=== PATIENT | female | born 2000 | race Caucasian/White ===

== ENCOUNTER 2018-11-11 01:23 | Emergency (ER) | payer OTHER ==
--- OUTSIDE RECORDS SUMMARY | 2018-11-11 01:24 | XMS REPORT ---
:2000 Author Organization eClinicalWorks Care Team Providers Name Role Phone Andrea Garland Provider Role Unavailable Allergies, Adverse Reactions, Alerts Substance Reaction Event Type N.K.D.A. Info Not Available Non Drug Allergy Problems Problem Type Condition Code Onset Dates Condition Status Problem Irregular heart rate I49.9 Active Problem Depression with anxiety F41.8 Active Assessment Encounter to determine O36.80X0 Active viability of , single or unspecified fetus Assessment Amenorrhea N91.2 Active Assessment Encounter for supervision of Z34.91 Active low-risk in first trimester Medications No Known Medications Results No Known Results Summary Purpose [email or web address] Submission
--- OUTSIDE RECORDS SUMMARY | 2018-11-11 01:24 | XMS REPORT ---
:2000 Author Organization eClinicalWorks Care Team Providers Name Role Phone Raiza Ambriz Provider Role Unavailable Allergies No Known Allergies Problems Problem Type Condition Code Onset Dates Condition Status Problem Irregular heart rate I49.9 Active Problem Supervision of other high risk O09.899 Active pregnancies, unspecified trimester Problem Depression with anxiety F41.8 Active Problem Unspecified blood type, Rh negative Z67.91 Active Problem Other specified related O26.899 Active conditions, unspecified trimester Problem Underimmunization status Z28.3 Active Medications No Known Medications Results No Known Results Summary Purpose eClinicalWorks Submission
--- OUTSIDE RECORDS SUMMARY | 2018-11-11 01:24 | XMS REPORT ---
:2000 Author Organization eClinicalWorks Care Team Providers Name Role Phone Nga Ambrizy Provider Role Unavailable Allergies, Adverse Reactions, Alerts Substance Reaction Event Type N.K.D.A. Info Not Available Non Drug Allergy Problems Problem Type Condition Code Onset Dates Condition Status Problem Irregular heart rate I49.9 Active Problem Depression with anxiety F41.8 Active Assessment Irregular heart rate I49.9 Active Assessment Depression with anxiety F41.8 Active Medications No Known Medications Results Name Result Date Reference Range Unit Abnormality Flag EKG Complete Summary Purpose eClinicalWorks Submission
--- OUTSIDE RECORDS SUMMARY | 2018-11-11 01:25 | XMS REPORT ---
:2000 Author Organization eClinicalWorks Care Team Providers Name Role Phone Andrea Garland Provider Role Unavailable Allergies No Known Allergies Problems Problem Type Condition Code Onset Dates Condition Status Assessment Supervision of high risk O09.92 Active in second trimester Problem Depression with anxiety F41.8 Active Problem Irregular heart rate I49.9 Active Problem Supervision of high risk O09.92 Active in second trimester Problem Underimmunization status Z28.3 Active Problem Unspecified blood type, Rh negative Z67.91 Active Problem Supervision of other high risk O09.899 Active pregnancies, unspecified trimester Problem Other specified related O26.899 Active conditions, unspecified trimester Medications No Known Medications Results No Known Results Summary Purpose eClinicalWorks Submission
--- OUTSIDE RECORDS SUMMARY | 2018-11-11 01:25 | XMS REPORT ---
:2000 Author Organization eClinicalWorks Care Team Providers Name Role Phone Andrea Garland Provider Role Unavailable Allergies No Known Allergies Problems Problem Type Condition Code Onset Dates Condition Status Assessment Encounter for supervision of Z34.91 Active low-risk in first trimester Problem Irregular heart rate I49.9 Active Problem [...]
--- NOTE | 2018-11-11 02:08 | EDPHYS ---
Physician Documentation [facility] Name: Gretel Jones Age: 18 yrs Sex: Female : 2000 Arrival Date: 11/11/2018 Time: 01:25 Bed 7 Private MD: ED Physician Mehul Fraga HPI: 11/11 02:10 This 18 yrs old Female presents to ER via Ambulatory with complaints of cp Hemorrhoids - - 5mths Preg. 02:10 The patient presents to the emergency department with pain in the rectal area, cp hemorrhoids. 02:10 Onset: The symptoms/episode began/occurred 2 day(s) ago. cp 02:10 Associate signs and symptoms: Pertinent positives: constipation, Pertinent negatives: cp abdominal pain, fever, lower GI bleeding, vomiting vaginal bleeding, leakage of fluids. 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 - Social history:: Smoking status: Patient/guardian denies using tobacco, never smoked. - Ebola Screening: : Patient negative for fever greater than or equal to 101.5 degrees Fahrenheit, and additional compatible Ebola Virus Disease symptoms Patient denies exposure to infectious person Patient denies travel to an Ebola-affected area in the 21 days before illness onset. ROS: 02:15 Constitutional: Negative for body aches, chills, fever, poor PO intake. cp 02:15 Eyes: Negative for injury, pain, redness, and discharge. cp 02:15 Cardiovascular: Negative for chest pain, edema, palpitations. 02:15 Respiratory: Negative for cough, shortness of breath, wheezing. 02:15 Abdomen/GI: Positive for constipation, rectal pain, Negative for abdominal pain, nausea, vomiting, and diarrhea, rectal bleeding. 02:15 : Negative for urinary symptoms, vaginal bleeding, vaginal discharge. 02:15 Skin: Negative for rash. 02:15 All other systems are negative. Exam: 02:18 Constitutional: The patient appears in no acute distress, alert, awake, well developed, cp well nourished. 02:18 Head/Face: Normocephalic, atraumatic. cp 02:18 Eyes: Periorbital structures: appear normal, Sclera: no appreciated abnormality, Lids and lashes: appear normal, bilaterally. 02:18 ENT: External ear(s): are unremarkable, Nose: is normal, Mouth: is normal, Posterior pharynx: is normal, airway is patent, no erythema, no exudate. 02:18 Chest/axilla: Inspection: normal. 02:18 Cardiovascular: Rate: normal. 02:18 Respiratory: the patient does not display signs of respiratory distress, Respirations: normal. 02:18 Abdomen/GI: Inspection: gravid appearance, is noted, Palpation: abdomen is soft and non-tender, in all quadrants, Rectal exam: hemorrhoid(s), external, with pain, without bleeding. Vital Signs: 01:41 BP 129 / 82; Pulse 86; Resp 18; Temp 98.1(O); Pulse Ox 100% ; Weight 63.96 kg; Height 5 tl1 ft. 2 in. (157.48 cm); Pain 0/10; 02:20 BP 123 / 79; Pulse 91; Resp 17; Pulse Ox 100% on R/A; Pain 0/10; tl1 01:41 Body Mass Index 25.79 (63.96 kg, 157.48 cm) tl1 MDM: 01:46 Patient medically screened. cp 02:06 Data reviewed: vital signs, nurses notes, and as a result, I will discharge patient. cp 02:06 Counseling: I had a detailed discussion with the patient and/or guardian regarding: the cp historical points, exam findings, and any diagnostic results supporting the discharge/admit diagnosis, the need for outpatient follow up, an OB/Gyne specialist, to return to the emergency department if symptoms worsen or persist or if there are any questions or concerns that arise at home. 11/11 02:05 Order name: FHT's; Complete Time: 02:09 cp Administered Medications: No medications were administered Disposition: 11/11/18 02:07 Discharged to Home. Impression: Hemorrhoids in . - Condition is Stable. - Discharge Instructions: Hemorrhoids. - Prescriptions for Anusol- HC 2.5 % Rectal Cream - Apply to affected area 1 application by TOPICAL route every 8 hours As needed; 30 gram. - Medication Reconciliation Form, Thank You Letter, Antibiotic Education, Prescription Opioid Use form. - Follow up: Private Physician; When: 2 - 3 days; Reason: Worsening of condition. - Problem is new. - Symptoms are unchanged. Signatures: Rosaline Orellana RN RN tl1 Asif Mcginnis PA PA cp Corrections: (The following items were deleted from the chart) 02:20 02:07 11/11/2018 02:07 Discharged to Home. Impression: Hemorrhoids in . tl1 Condition is Stable. Forms are Medication Reconciliation Form, Thank You Letter, Antibiotic Education, Prescription Opioid Use. Follow up: Private Physician; When: 2 - 3 days; Reason: Worsening of condition. Problem is new. Symptoms are unchanged. cp 11/12 02:11 11/11 00:10 This 18 yrs old Female presents to ER via Ambulatory with cp complaints of Hemorrhoids - - 5mths Preg. cp
--- NOTE | 2018-11-11 02:08 | ER ---
Nurse's Notes [facility] Name: Gretel Jones Age: 18 yrs Sex: Female : 2000 Arrival Date: 11/11/2018 Time: :25 Bed 7 Private MD: Diagnosis: Hemorrhoids in Presentation: 11/11 01:37 Presenting complaint: Patient states: I am 22 weeks and approx 2 days ago tl1 noticed hemorrhoids that are protruding. It is uncomfortable when I walk. Transition of care: patient was not received from another setting of care. Onset of symptoms was November 08, 2018. Risk Assessment: Do you want to hurt yourself or someone else? Patient reports no desire to harm self or others. Initial Sepsis Screen: Does the patient meet any 2 criteria? No. Patient's initial sepsis screen is negative. Does the patient have a suspected source of infection? No. Patient's initial sepsis screen is negative. Care prior to arrival: None. 01:37 Method Of Arrival: Ambulatory tl1 01:37 Acuity: BIJU 3 tl1 Triage Assessment: 02:19 General: Behavior is calm, cooperative, appropriate for age. 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 - Social history:: Smoking status: Patient/guardian denies using tobacco, never smoked. - Ebola Screening: : Patient negative for fever greater than or equal to 101.5 degrees Fahrenheit, and additional compatible Ebola Virus Disease symptoms Patient denies exposure to infectious person Patient denies travel to an Ebola-affected area in the 21 days before illness onset. Screenin:11 Abuse screen: Denies threats or abuse. Denies injuries from another. Nutritional tl1 screening: No deficits noted. Tuberculosis screening: No symptoms or risk factors identified. Fall Risk None identified. Assessment: 01:40 General: Appears in no apparent distress. Pain: Denies pain. Neuro: Level of tl1 Consciousness is awake, alert, obeys commands. Cardiovascular: Denies chest pain. Respiratory: Airway is patent Trachea midline Respiratory effort is even, unlabored. GI: Abdomen is Rectal exam: Hemorrhoids noted. : No signs and/or symptoms were reported regarding the genitourinary system. EENT: No signs and/or symptoms were reported regarding the EENT system. Derm: No signs and/or symptoms reported regarding the dermatologic system. Vital Signs: 01:41 BP 129 / 82; Pulse 86; Resp 18; Temp 98.1(O); Pulse Ox 100% ; Weight 63.96 kg; Height 5 tl1 ft. 2 in. (157.48 cm); Pain 0/10; 02:20 BP 123 / 79; Pulse 91; Resp 17; Pulse Ox 100% on R/A; Pain 0/10; tl1 01:41 Body Mass Index 25.79 (63.96 kg, 157.48 cm) tl1 Vitals: 02:11 Heart Tones 163. tl1 ED Course: 01:25 Patient arrived in ED. am2 01:37 Rosaline Orellana RN is Primary Nurse. tl1 01:39 Triage completed. tl1 01:43 Arm band placed on right wrist. Patient placed in an exam room. tl1 01:45 Patient has correct armband on for positive identification. Placed in gown. Bed in low tl1 position. Call light in reach. Side rails up X 1. 01:46 Asif Mcginnis PA is PHCP. cp 01:46 Mehul Fraga MD is Attending Physician. 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 Patient did not have IV access during this tl1 emergency room visit. Administered Medications: No medications were administered Outcome: 02:07 Discharge ordered by . cp 02:19 Discharged to home ambulatory, with family. tl1 02:19 Condition: good 02:19 Discharge instructions given to patient, family, Instructed on discharge instructions, follow up and referral plans. medication usage, Demonstrated understanding of instructions, follow-up care, medications, Prescriptions given X 1. 02:20 Patient left the ED. tl1 Signatures: Rosaline Orellana RN RN tl1 Asif Mcginnis PA PA cp Moreno, Amanda am2
== END 2018-11-11 02:20 | disposition home or self-care (01) ==
LOC: ER 01:23
DX: O22.42 Hemorrhoids in pregnancy, second trimester (principal); Z3A.00 Weeks of gestation of pregnancy not specified
CPT/HCPCS: 99283

== ENCOUNTER 2019-01-03 08:50 | Emergency (ER) | payer OTHER ==
--- OUTSIDE RECORDS SUMMARY | 2019-01-03 08:53 | XMS REPORT ---
:2000 Author Organization eClinicalWorks Care Team Providers Name Role Phone Andrea Garland Provider Role Unavailable Allergies No Known Allergies Problems Problem Type Condition Code Onset Dates Condition Status Problem Depression with anxiety F41.8 Active Problem [...]
--- OUTSIDE RECORDS SUMMARY | 2019-01-03 08:53 | XMS REPORT ---
:2000 Author Organization eClinicalWorks Care Team Providers Name Role Phone Andrea Garland Provider Role Unavailable Allergies No Known Allergies Problems Problem Type Condition Code Onset Dates Condition Status Assessment Supervision of high risk O09.93 Active in third trimester Problem Unspecified blood type, Rh negative Z67.91 Active Problem Supervision of high risk O09.92 Active in second trimester Problem Irregular heart rate I49.9 Active Problem Supervision of high risk O09.93 Active in third trimester Problem Other specified related O26.899 Active conditions, unspecified trimester Problem Underimmunization status Z28.3 Active Problem Depression with anxiety F41.8 Active Problem Supervision of other high risk O09.899 Active pregnancies, unspecified trimester Medications Medication Code Code Instructions Start End Status Dosage System Date Date Ferralet [address] [facility] 42045136223 90-1 MG Orally December 08, Active 1 tablet Once a day 2018 after a meal CitraNatal 90 [place] 07120180304 90-1 & 300 MG December 08, Active as directed DHA Orally once a 2019 day Results No Known Results Summary Purpose eClinicalWorks Submission
--- OUTSIDE RECORDS SUMMARY | 2019-01-03 08:53 | XMS REPORT ---
[...] Medications Results No Known Results Summary Purpose [employer] Submission
--- OUTSIDE RECORDS SUMMARY | 2019-01-03 08:53 | XMS REPORT ---
[...] related O26.899 Active conditions, unspecified trimester Medications Medication Code Code Instructions Start End Status Dosage System Date Date Ferralet 90 [facility] 25057435959 90-1 MG Orally December 08, Active 1 tablet Once a day 2019 after a meal CitraNatal 90 [facility] [id number] 90-1 & 300 MG December 08, Active as directed DHA Orally once a 2019 day Results No Known Results Summary Purpose eClinicalWorks Submission
--- OUTSIDE RECORDS SUMMARY | 2019-01-03 08:53 | XMS REPORT ---
:2000 Author Organization eClinicalWorks Care Team Providers Name Role Phone Andrea Garland Provider Role Unavailable Allergies No Known Allergies Problems Problem Type Condition Code Onset Dates Condition Status Assessment Unspecified blood type, Rh negative Z67.91 Active Assessment Supervision of high risk O09.92 Active [...]
--- OUTSIDE RECORDS SUMMARY | 2019-01-03 08:53 | XMS REPORT ---
:2000 Author Organization eClinicalWorks Care Team Providers Name Role Phone Andrea Garland Provider Role Unavailable Allergies No Known Allergies Problems Problem Type Condition Code Onset Dates Condition Status Assessment Need for rhogam due to Rh negative Z29.13 Active mother Problem Depression with anxiety F41.8 Active Problem [...]
[2019-01-03 10:14] LABS: Absolute Lymphocytes (CBC) 2.3 K/uL (0.7-4.9); Basophils % 0.3 % (0-1.3); Eosinophils % 0.6 % (0-4.4); Hematocrit 33.7 % (36.0-45.0); Lymphocytes % 14.3 % (15.3-44.8); MPV 10.1 fL (7.6-11.3); Monocytes % 6.4 % (3.3-12.3); RBC Red Blood Cell Count 3.75 M/uL (3.86-4.86)
[2019-01-03 10:41] LABS: BUN Blood Urea Nitrogen 9 mg/dL (7-18); Bicarbonate 23 mmol/L (21-32); Glucose Level 84 mg/dL (74-106); Potassium 3.8 mmol/L (3.5-5.1); Sodium Level 139 mmol/L (136-145); Troponin (Emerg Dept Use Only) < 0.02 ng/mL (0.0-0.045)
--- NOTE | 2019-01-03 11:00 | RAD REPORT ---
EXAM DESCRIPTION: RAD - Chest Single View - 01/03/2019 10:52 am CLINICAL HISTORY: shield;Chest pain Chest pain. COMPARISON: No comparisons FINDINGS: Portable technique limits examination quality. The lungs are grossly clear. The heart is normal in size. No displaced fractures. IMPRESSION: No acute intrathoracic process suspected.
--- NOTE | 2019-01-03 11:08 | EDPHYS ---
Physician Documentation [facility] Name: Gretel Jones Age: 18 yrs Sex: Female : 2000 Arrival Date: 01/03/2019 Time: 08:55 Bed 7 Private MD: None, None ED Physician Hubert Marinelli HPI: 01/03 10:14 This 18 yrs old Female presents to ER via Ambulatory with complaints of Chest rn Pain. 10:14 The patient or guardian reports chest pain that is located primarily in the anterior rn chest wall. The pain does not radiate. Associated signs and symptoms: Pertinent positives: None. Pertinent negatives: abdominal pain, cough, diaphoresis, dizziness, lower extremity swelling, lightheadedness, near syncope, palpitations, recent travel, shortness of breath, syncope, vomiting. The chest pain is described as sharp. Duration: The patient or guardian reports a single episode, that is now resolved. Severity of pain: At its worst the pain was mild in the emergency department the pain has resolved. The patient has experienced similar episodes in the past. REports hx of "irregular heart beat", began prior to , has seen doctors for it, and no clear etiology. Reports today started with sharp chest pain, non-radiating, no sob, no cough. No hx of dvt/pe. Reports lasted for approx 30 min, worse with deep breath, and now gone. Right now feels at baseline. Reports 6.5 months , no trauma, still feels baby moving. No fever. . [employer] C[employer]: 09:28 LMP 05/21/2018 ch Historical: - Allergies: 09:28 No Known Allergies; ch - PMHx: 09:28 Irregular heart rate; ch - PSHx: 09:28 None; ch - Immunization history:: Adult Immunizations up to date. - Social history:: Smoking status: Patient/guardian denies using tobacco. - Ebola Screening: : Patient negative for fever greater than or equal to 101.5 degrees Fahrenheit, and additional compatible Ebola Virus Disease symptoms Patient denies exposure to infectious person Patient denies travel to an Ebola-affected area in the 21 days before illness onset No symptoms or risks identified at this time. - Family history:: not pertinent. - Hospitalizations: : No recent hospitalization is reported. ROS: 10:14 Constitutional: Negative for fever, chills, and weight loss, Eyes: Negative for injury, rn pain, redness, and discharge, Neck: Negative for injury, pain, and swelling, Cardiovascular: Negative for palpitations, and edema, Respiratory: Negative for shortness of breath, cough, wheezing Abdomen/GI: Negative for abdominal pain, nausea, vomiting, diarrhea, and constipation, MS/Extremity: Negative for injury and deformity, Skin: Negative for injury, rash, and discoloration, Neuro: Negative for headache, weakness, numbness, tingling, and seizure. Exam: 10:14 Constitutional: This is a well developed, well nourished patient who is awake, alert, rn and in no acute distress. Head/Face: Normocephalic, atraumatic. Eyes: Pupils equal round and reactive to light, extra-ocular motions intact. Lids and lashes normal. Conjunctiva and sclera are non-icteric and not injected. Cornea within normal limits. Periorbital areas with no swelling, redness, or edema. ENT: MMM Cardiovascular: Regular rate and rhythm, no JVD, no murmur. No pulse deficits. Respiratory: Lungs have equal breath sounds bilaterally, clear to auscultation. No increased work of breathing, no retractions or nasal flaring. Abdomen/GI: soft, gravid uterus, no tenderness Skin: Warm, dry MS/ Extremity: Pulses equal, no cyanosis. Neurovascular intact. Full, normal range of motion. Equal circumference. Neuro: Awake and alert, GCS 15, oriented to person, place, time, and situation. Cranial nerves II-XII grossly intact. Motor strength 5/5 in all extremities. Sensory grossly intact. Cerebellar exam normal. 10:38 ECG was reviewed by the Attending Physician. rn Vital Signs: 09:28 BP 143 / 71; Pulse 84; Resp 16; Temp 98.1; Pulse Ox 99% on R/A; Weight 69.4 kg; Height ch 5 ft. 3 in. (160.02 cm); Pain 2/10; 10:00 BP 126 / 76; Pulse 80; Resp 15; Pulse Ox 100% on R/A; hb 11:00 BP 128 / 74; Pulse 82; Resp 15; Pulse Ox 100% on R/A; Pain 0/10; hb 09:28 Body Mass Index 27.10 (69.40 kg, 160.02 cm) ch MDM: 09:30 Patient medically screened. rn 11:06 Differential diagnosis: acute pericarditis, chest wall pain, costochondritis, rn esophagitis, gastritis, gastroesophageal reflux disease (GERD), pleurisy, pneumothorax. Data reviewed: vital signs, nurses notes, lab test result(s), EKG, radiologic studies, plain films, and as a result, I will discharge patient. Counseling: I had a detailed discussion with the patient and/or guardian regarding: the historical points, exam findings, and any diagnostic results supporting the discharge/admit diagnosis, lab results, radiology results, the need for outpatient follow up, to return to the emergency department if symptoms worsen or persist or if there are any questions or concerns that arise at home. Special discussion: I discussed with the patient/guardian in detail that at this point there is no indication for admission to the hospital. It is understood, however, that if the symptoms persist or worsen the patient needs to return immediately for re-evaluation. Based on the history and exam findings, there is no indication for further emergent testing or inpatient evaluation. I discussed with the patient/guardian the need to see the OB Gyne specialist for further evaluation of the symptoms. I discussed with the patient/guardian the need to see the primary care provider for further evaluation of the symptoms. ED course: Pt still without chest pain, only lasted 30 min and self-resolved, neg w/u for acute findings, normal ecg/trop/cxr. No hypoxia, normal HR, no other risk factors for DVT/PE, will dc home with return precautions.. 01/03 09:48 Order name: CBC with Diff; Complete Time: 10:37 rn 01/03 09:48 Order name: Basic Metabolic Panel; Complete Time: 11:01/03 09:48 Order name: EKG; Complete Time: 09:48 rn 01/03 09:48 Order name: Troponin (emerg Dept Use Only); Complete Time: 11:01/03 09:48 Order name: XRAY Chest (1 view); Complete Time: 11:01/03 09:48 Order name: IV Start; Complete Time: 10:08 01/03 09:48 Order name: EKG - Nurse/Tech; Complete Time: 10:08 rn EC:38 Rate is 88 beats/min. Rhythm is regular. QRS [place] is Normal. GA interval is normal. QRS rn interval is normal. QT interval is normal. No Q waves. T waves are Normal. No ST changes noted. Clinical impression: Normal ECG. Interpreted by me. Reviewed by me. Administered Medications: 11:09 Drug: Maalox Suspension (200 mg-200 mg-20 mg/5 mL) 30 ml Route: PO; hb 11:10 Follow up: Response: Medication administered at discharge. Disposition: 01/03/19 11:08 Discharged to Home. Impression: Chest pain, unspecified. - Condition is Stable. - Discharge Instructions: Nonspecific Chest Pain, Pleurisy. - Medication Reconciliation Form, Thank You Letter, Antibiotic Education, Prescription Opioid Use form. - Follow up: Private Physician; When: As needed; Reason: Recheck today's complaints, Re-evaluation by your physician. - Problem is new. - Symptoms are resolved. Signatures: Dispatcher [employer] EDChelle Mcwilliams RN RN Hubert Marinelli MD MD rn Hall, Patricia, RN RN Fabiola Alba RN RN Corrections: (The following items were deleted from the chart) 11:42 11:08 01/03/2019 11:08 Discharged to Home. Impression: Chest pain, unspecified. ph Condition is Stable. Forms are Medication Reconciliation Form, Thank You Letter, Antibiotic Education, Prescription Opioid Use. Follow up: Private Physician; When: As needed; Reason: Recheck today's complaints, Re-evaluation by your physician. Problem is new. Symptoms are resolved. rn
--- NOTE | 2019-01-03 11:08 | ER ---
Nurse's Notes [facility] Name: Gretel Jones Age: 18 yrs Sex: Female : 2000 Arrival Date: 01/03/2019 Time: 08:55 Bed 7 Private MD: None, None Diagnosis: Chest pain, unspecified Presentation: 01/03 09:27 Presenting complaint: Patient states: I have a history of irregular heart beat, I am 30 ch weeks , I was having sharp shooting chest pains this morning with SOB. Transition of care: patient was not received from another setting of care. Onset of symptoms was January 03, 2019. Risk Assessment: Do you want to hurt yourself or someone else? Patient reports no desire to harm self or others. Initial Sepsis Screen: Does the patient meet any 2 criteria? No. Patient's initial sepsis screen is negative. Does the patient have a suspected source of infection? No. Patient's initial sepsis screen is negative. Care prior to arrival: None. 09:27 Method Of Arrival: Ambulatory 09:27 Acuity: BIJU 3 ch Triage Assessment: 09:28 General: Appears in no apparent distress. comfortable, Behavior is cooperative, ch appropriate for age. Pain: Complains of pain in anterior aspect of left upper chest and mid-sternal area Pain currently is 2 out of 10 on a pain scale. at worst was 8 out of 10 on a pain scale. Cardiovascular: Reports chest pain, palpitations, shortness of breath. 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 - Social history:: Smoking status: Patient/guardian denies using tobacco. - Ebola Screening: : Patient negative for fever greater than or equal to 101.5 degrees Fahrenheit, and additional compatible Ebola Virus Disease symptoms Patient denies exposure to infectious person Patient denies travel to an Ebola-affected area in the 21 days before illness onset No symptoms or risks identified at this time. - Family history:: not pertinent. - Hospitalizations: : No recent hospitalization is reported. Screenin:05 Abuse screen: Denies threats or abuse. Denies injuries from another. Nutritional hb screening: No deficits noted. Tuberculosis screening: No symptoms or risk factors identified. Fall Risk None identified. Assessment: 10:00 General: Appears in no apparent distress. Behavior is calm, cooperative. Pain: hb Complains of pain in anterior aspect of left upper chest Pain does not radiate. Pain began suddenly. Neuro: Level of Consciousness is awake, alert, obeys commands, Oriented to person, place, time, situation. Cardiovascular: Capillary refill < 3 seconds Patient's skin is warm and dry. Respiratory: Airway is patent Respiratory effort is even, unlabored, Respiratory pattern is regular, symmetrical, Breath sounds are clear bilaterally. GI: No signs and/or symptoms were reported involving the gastrointestinal system. : No signs and/or symptoms were reported regarding the genitourinary system. EENT: No signs and/or symptoms were reported regarding the EENT system. Derm: Skin is intact, is healthy with good turgor, Skin is pink, warm \T\ dry. Musculoskeletal: No signs and/or symptoms reported regarding the musculoskeletal system. 11:00 Reassessment: Patient appears in no apparent distress at this time. Patient and/or hb family updated on plan of care and expected duration. Pain level reassessed. Patient is alert, oriented x 3, equal unlabored respirations, skin warm/dry/pink. 11:10 Reassessment: Pt c/o indigestion, requesting TUMS. Dr. Marinelli notified, Maalox hb administered as ordered. Vital Signs: 09:28 BP 143 / 71; Pulse 84; Resp 16; Temp 98.1; Pulse Ox 99% on R/A; Weight 69.4 kg; Height 5 ft. 3 in. (160.02 cm); Pain 2/10; 10:00 BP 126 / 76; Pulse 80; Resp 15; Pulse Ox 100% on R/A; hb 11:00 BP 128 / 74; Pulse 82; Resp 15; Pulse Ox 100% on R/A; Pain 0/10; hb 09:28 Body Mass Index 27.10 (69.40 kg, 160.02 cm) ED Course: 08:55 Patient arrived in ED. dp 08:56 None, None is Private Physician. dp 09:28 Triage completed. ch 09:28 Arm band placed on left wrist. Patient placed in waiting room. ch 09:30 Hubert Marinelli MD is Attending Physician. rn 09:48 Inserted saline lock: 20 gauge in right antecubital area, using aseptic technique. hb Blood collected. Patient maintains SpO2 saturation greater than 95% on room air. 09:51 EKG done, by manager technical training. reviewed by Hubert Marinelli MD. at1 09:55 Patient has correct armband on for positive identification. Placed in gown. Bed in low hb position. Call light in reach. Side rails up X 1. campus monitor on. Pulse ox on. NIBP on. 10:05 Fabiola Alba, RN is Primary Nurse. hb 10:51 XRAY Chest (1 view) In Process Unspecified. EDMS 11:25 No provider procedures requiring assistance completed. IV discontinued, intact, hb bleeding controlled, No redness/swelling at site. Pressure dressing applied. Administered Medications: 11:09 Drug: Maalox Suspension (200 mg-200 mg-20 mg/5 mL) 30 ml Route: PO; hb 11:10 Follow up: Response: Medication administered at discharge. hb Outcome: 11:08 Discharge ordered by . rn 11:25 Discharged to home ambulatory, with significant other. hb 11:25 Condition: stable 11:25 Discharge instructions given to patient, Instructed on discharge instructions, follow up and referral plans. Demonstrated understanding of instructions, follow-up care. 11:42 Patient left the ED. ph Signatures: Dispatcher [employer] EDMS Chelle Neal, RN ISIS Hubert Marinelli MD MD rn Gonzales, Amanda, electric trucker EKG Tat1 Sonja Garcia RN RN Fabiola Alba, RN RN Hubert Nettles dp
[2019-01-03] MEDS ORDERED: MAGNE/ALUM HYDROXD 30 ML UCUP ONE (11:24)
--- NOTE | 2019-01-04 07:22 | EKG ---
Test Date: 2019-01-03 Test Time: 09:34:41 Textile Screen Maker: TERRA MEASUREMENT RESULTS: Intervals: Rate: 88 WI: 130 QRSD: 74 QT: 344 QTc: 416 Brigantine: P: 48 WI: 130 QRS: 76 T: 29 INTERPRETIVE STATEMENTS: Normal sinus rhythm Normal ECG No previous ECG available for comparison Electronically Signed On 01-04-19 07:20:47 CDT by Getachew Jha
== END 2019-01-03 11:42 | disposition home or self-care (01) ==
LOC: ER 08:50
DX: R07.9 Chest pain, unspecified (principal)
CPT/HCPCS: 36415; 71045; 80048; 84484; 85025; 93005; 99285

== ENCOUNTER 2019-02-21 11:24 | Inpatient (IN) | payer OTHER ==
--- OUTSIDE RECORDS SUMMARY | 2019-02-21 11:27 | XMS REPORT ---
:2000 Author Organization e[employer] Care Team Providers Name Role Phone Anrdea Garland Provider Role Unavailable Allergies, Adverse Reactions, [...] Medications Results No Known Results Summary Purpose [employer] Submission
--- OUTSIDE RECORDS SUMMARY | 2019-02-21 11:28 | XMS REPORT ---
[...] Start End Status Dosage System Date Date CitraNatal 90 [facility] [id number] 90-1 & 300 MG December 08, Active as directed DHA Orally once a 2019 day Ferralet 90 [facility] [id number] 90-1 MG Orally December 08, Active 1 tablet Once a day 2019 after a meal Results No Known Results Summary Purpose [employer]ClinicalWorks Submission
--- OUTSIDE RECORDS SUMMARY | 2019-02-21 11:28 | XMS REPORT ---
[...] Status Dosage System Date Date Ferralet 90 [facility] [id number] 90-1 MG Orally December 08, Active 1 tablet Once a day 2019 after a meal CitraNatal 90 [facility] [id number] 90-1 & 300 MG December 08, Active as directed DHA Orally once a 2019 day Results No Known Results Summary Purpose [employer]ClinicalWorks Submission
--- OUTSIDE RECORDS SUMMARY | 2019-02-21 11:28 | XMS REPORT ---
[...] Dosage System Date Date Ferralet 90 [facility] [id number] 90-1 MG Orally December 08, Active 1 tablet Once a day 2018 after a meal CitraNatal 90 [place] [id number] 90-1 & 300 MG December 08, Active as directed DHA Orally once a 2019 day Results No Known Results Summary Purpose [employer]ClinicalWorks Submission
--- OUTSIDE RECORDS SUMMARY | 2019-02-21 11:28 | XMS REPORT ---
:2000 Author Organization [employer]Clinical[employer] Care Team Providers Name Role Phone Andrea Garland Provider Role Unavailable Allergies No Known Allergies Problems Problem Type Condition Code Onset Dates Condition Status Problem Unspecified blood type, Rh negative Z67.91 [...] risk O09.899 Active pregnancies, unspecified trimester Medications No Known Medications Results No Known Results Summary Purpose [employer]ClinicalWorks Submission
--- OUTSIDE RECORDS SUMMARY | 2019-02-21 11:28 | XMS REPORT ---
[...] Status Dosage System Date Date Ferralet 90 [facility] [id number] 90-1 MG Orally December 08, Active 1 tablet Once a day 2018 after a meal CitraNatal 90 [place] [id number] 90-1 & 300 MG December 08, Active as directed DHA Orally once a 2019 day Results No Known Results Summary Purpose [employer]ClinicalWorks Submission
--- OUTSIDE RECORDS SUMMARY | 2019-02-21 11:28 | XMS REPORT ---
[...] Date Date Ferralet 90 [facility] [id number] 90-1 MG Orally December 08, Active 1 tablet Once a day 2018 after a meal CitraNatal 90 [place] [id number] 90-1 & 300 MG December 08, Active as directed DHA Orally once a 2019 day Results No Known Results Summary Purpose eClinicalWorks Submission
--- OUTSIDE RECORDS SUMMARY | 2019-02-21 11:28 | XMS REPORT ---
[...] Status Dosage System Date Date Ferralet 90 [facility] [id number] 90-1 MG Orally December 08, Active 1 tablet Once a day 2018 after a meal CitraNatal 90 [place] [id number] 90-1 & 300 MG December 08, Active as directed DHA Orally once a 2019 day Results No Known Results Summary Purpose eClinicalWorks Submission
[2019-02-21] MEDS ORDERED: CARBOPROST TROME 250 MCG/ML IM PRN (12:05)
[2019-02-21] MEDS ORDERED: Ringers Lactate 1,000 ML IV PRN (12:05)
[2019-02-21] MEDS ORDERED: METHYLERGONOVINE 0.2MG/ML AMP IM PRN (12:05)
[2019-02-21] MEDS ORDERED: PROMETHAZINE 25 MG/ML VIAL IV PRN ×2 (12:05)
[2019-02-21] MEDS ORDERED: BUTORPHANOL 1 MG/ML INJ IV PRN (12:05)
[2019-02-21 12:34] LABS: Absolute Lymphocytes (CBC) 1.8 K/uL (0.7-4.9); Basophils % 0.3 % (0-1.3); Hematocrit 35.3 % (36.0-45.0); MPV 10.8 fL (7.6-11.3); RBC Red Blood Cell Count 3.93 M/uL (3.86-4.86)
[2019-02-21 12:35] LABS: Urine Appearance CLEAR; Urine Bilirubin NEGATIVE (NEG); Urine Blood NEGATIVE (NEG); Urine Color YELLOW; Urine Glucose NEGATIVE (NEG); Urine Protein TRACE (NEG)
[2019-02-21 12:42] LABS: Urine Microscopic Reflex ORDER UMIC
[2019-02-21 12:53] LABS: Urine Bacteria 20-50 /HPF (<20); Urine Culture Reflex Order REFLEXED; Urine RBC NONE SEEN /HPF (NONE SEEN)
[2019-02-21] MEDS ORDERED: OXYTOCIN/LR 20 UNIT/1,000 ML BAG IV SCH (13:00)
[2019-02-21] MEDS ORDERED: Ringers Lactate 1,000 ML IV SCH (13:00)
[2019-02-21 13:15] VITALS: BMI 29.4
[2019-02-21 14:20] LABS: Blood Morphology Comment NOT SEEN (NOT SEEN); Platelet Estimate ADEQ; Toxic Granulation 1+; Urine White Blood Cell Casts OK
[2019-02-21] MEDS ORDERED: ROPIVACAINE HCL 100 ML IV ONE ×2 (14:40→14:49)
[2019-02-21] MEDS ORDERED: FENTANYL CITR 100 MCG/2 ML IV ONE (14:41)
[2019-02-21] MEDS ORDERED: ROPIVACAINE HCL 0.2% 20ML AMP IV ONE (14:41)
[2019-02-21] MEDS ORDERED: FENTANYL CITR 100 MCG/2 ML ONE (14:51)
[2019-02-21] MEDS ORDERED: LIDOCAINE 1% MPF 30 ML VIAL ONE (16:54)
[2019-02-21] MEDS ORDERED: DOCUSATE NA/SENNA CONC 1 TAB PO PRN (17:25)
[2019-02-21] MEDS ORDERED: Rho(D) IG (HUMAN) 300 MCG SYR IM PRN (17:25)
[2019-02-21] MEDS ORDERED: BISACODYL 10 MG RECTAL SUPP RECT PRN (17:25)
[2019-02-21] MEDS ORDERED: ACETAMINOPHEN 500 MG TAB PO PRN (17:25)
[2019-02-21] MEDS ORDERED: Oxycodone HCl/Acetaminophen 1 TAB TAB PO PRN (17:25)
[2019-02-21] MEDS ORDERED: IBUPROFEN 200 MG TAB PO PRN (17:25)
--- NOTE | 2019-02-21 17:28 | P.OP ---
Date of Service: 02/21/19 Findings and Operative Technique Patient delivered a viable male in cephalic presentation on February 21, 2019 at 4:49 p.m.. Infant was delivered via vacuum assisted vaginal delivery due to poor maternal effort and bradycardia. Once the was delivered the nose and mouth were suctioned with a suction bulb and the cord was clamped and cut. Patient was very uncomfortable during the delivery and multiple times kept reaching down approaching her hand and pushing my hand away during the delivery process therefore it was very difficult to deliver safely. Patient was requested multiple times to please keep her hands back from the field. Infant was taken to the warmer to be cleaned prior to skin to skin bonding since the mom was so uncomfortable and we were worried about her dropping the baby. Attention was turned to the umbilical cord cord blood was obtained. Placenta was then delivered with gentle traction at 4:50 p.m. and was noted to be intact. Attention was then turned to the midline perineum were an episiotomy had been performed. There was noted to be second-degree laceration. It was repaired with a 2 0 Vicryl in usual fashion. Estimated blood loss was 300 cc. Apgars were 9 and 9. Weight was found to be 7 lb 4 oz. 1st stage of labor was 2 hr and 20 min. 2nd stage of labor was 20 min. Mom is now more relaxed. She is now bonding with the baby. We have encouraged her to breast- feed.
[2019-02-21 21:15] LABS: RPR (Rapid Plasma Reagin) NON-REACT (NON-REACT)
[2019-02-22 04:28] LABS: Absolute Lymphocytes (CBC) 2.1 K/uL (0.7-4.9); Basophils % 0.9 % (0-1.3); Hematocrit 30.7 % (36.0-45.0); Lymphocytes % 10.5 % (15.3-44.8); MPV 10.2 fL (7.6-11.3); RBC Red Blood Cell Count 3.44 M/uL (3.86-4.86)
[2019-02-22 17:39] VITALS: BP 126/69; TEMP 98
[2019-02-23 21:55] LABS: HBsAG Nonreactive (Nonreactive)
--- NOTE | 2019-02-24 15:14 | P.DS ---
Admission Date: 02/21/19 Discharge Date: 02/22/19 Disposition: ROUTINE DISCHARGE Discharge Condition: GOOD Brief History of Present Illness: admitted for labor management. see h&p Hospital Course: Patient did well following delivery of the infant. her pain has been well managed. She is and bonding well with the baby. She is tolerating a regular diet and ambulating without difficulty. She is voiding well. Positive flatus. No bowel movements yet. Vital Signs/Physical Exam: Temp Pulse Resp BP Pulse Ox 98.0 F 111 H 18 126/69 99 02/22/19 16:00 02/22/19 16:00 02/22/19 16:00 02/22/19 16:00 02/22/19 16:00 General: Alert, In no apparent distress HEENT: Atraumatic Neck: Supple Respiratory: Normal air movement Cardiovascular: No edema, Normal pulses Gastrointestinal: Soft and benign (Fundus firm palpated beneath umbilicus) Musculoskeletal: No clubbing, No swelling Integumentary: No rashes, No breakdown, No significant lesion Neurological: Normal gait, Normal speech Laboratory Data at Discharge: WBC 19.9 K/uL (4.3-10.9) H 02/22/19 04:15 Hgb 10.3 g/dL (12.0-15.0) L 02/22/19 04:15 Hct 30.7 % (36.0-45.0) L 02/22/19 04:15 Plt Count 188 K/uL (152-406) 02/22/19 04:15 Home Medications: Pnv95/Ferrous Fumarate/FA [ Formula Tablet] 1 tab PO DAILY 12/18/18 Diet: Regular Activity: No lifting more than 10 lbs Followup: Andrea Garland DO [ACTIVE - CAN ADMIT] - (Follow up care with Dr. Garland in 4- 6 weeks for post parum visit)
== END 2019-02-22 18:50 | disposition home or self-care (01) | DRG 807 ==
LOC: 2ND-WC 11:24
PROVIDERS: ADMIT Student in an Organized Health Care Education/Training Program; ATTEND Student in an Organized Health Care Education/Training Program
PROC: 10D07Z6 Extraction of Products of Conception, Vacuum, Via Natural or Artificial Opening (ICD-10-PCS; principal; 2019-02-21)
PROC: 0KQM0ZZ Repair Perineum Muscle, Open Approach (ICD-10-PCS; 2019-02-21)
PROC: 0W8NXZZ Division of Female Perineum, External Approach (ICD-10-PCS; 2019-02-21)
PROC: 3E0234Z Introduction of Serum, Toxoid and Vaccine into Muscle, Percutaneous Approach (ICD-10-PCS; 2019-02-21)
DX: O70.1 Second degree perineal laceration during delivery (principal); Z37.0 Single live birth; Z3A.38 38 weeks gestation of pregnancy; O76 Abnormality in fetal heart rate and rhythm complicating labor and delivery
CPT/HCPCS: 36415; 81003; 81015; 85025; 85461; 86592; 86850; 86870; 86900; 86901; 87086; 87088; 87340; 88307; J2210; J2590; J2790; J2795; J3010

== ENCOUNTER 2020-03-13 09:27 | Emergency (ER) | payer OTHER ==
--- OUTSIDE RECORDS SUMMARY | 2020-03-13 09:29 | XMS REPORT | Continuity of Care Document ---
:2000 Author Organization [facility] t Address [address] [place] [address] Care Team Providers Name Role Phone Unavailable Unavailable Unavailable Problems Condition Condition Condition Status Onset Resolution Last Treating Co mments Source Name Details Category Date Date Treatment Clinician Date Irregular Irregular Problem Active [facility] heart rate heart rate Jacki kes - Memoria l [facility] ent Clinics Depression Depression Problem Active [facility] with with [facility] - anxiety anxiety Memoria l [facility] ent Clinics Supervisio Supervisio Problem Active [facility] n of other n of other Jacki kes - high risk high risk Jaswinder antonio pregnancie pregnancie l s, s, Outpati unspecifie unspecifie en t d d Clinics trimester trimester Unspecifie Unspecifie Problem Active [facility] d blood d blood [facility] - type, Rh type, Rh Memori a negative negative l [facility] ent Clinics Other Other Problem Active [facility] specified specified Luke s - Jaswinder antonio related related l conditions conditions Ou tpati , , ent unspecifie unspecifie Cl inics d d trimester trimester Underimmun Underimmun Problem Active [facility] ization ization [facility] - status status Memoria l [facility] ent Clinics Supervisio Supervisio Problem Active [facility] n of high n of high Luke s - risk risk Memoria l in second in second Outp ati trimester trimester ent Clinics Supervisio Supervisio Problem Active [facility] n of high n of high Luke s - risk risk Memoria l in third in third Outpat i trimester trimester ent Clinics Fatigue, Fatigue, Problem Active [facility] unspecifie unspecifie Jacki kes - d type d type Memoria l [facility] ent Clinics Sleep Sleep Problem Active [facility] apnea in apnea in [facility] - adult adult Memoria l [facility] ent Clinics Excessive Excessive Problem Active [facility] daytime daytime [facility] - sleepiness sleepiness Me moria l [facility] ent Clinics Allergies, Adverse Reactions, Alerts This patient has no known allergies or adverse reactions. Medications Ordered Filled Start Stop Current Ordering Indication Dosage Frequency Signature Comments Components Source Medication Medication Date Date Medication? Clinician (SIG) Name Name Luigi Camachoalemichael Bagley Yes Bhavana [address] [facility] 12-08 Louise after a [facility] - 00:00: meal Memoria 00 [facility] ent Clinics CitraNatal CitraNatal Yes Bhavana as [facility] 90 DHA 90 DHA 12-08 Louise [facility] Procedures This patient has no known procedures. Encounters Start End Encounter Admission Attending Care Care Encounter Source Date/Time Date/Time Type Type Clinicians Facility Department ID 2019-10-08 2019-10-08 [facility] [id number] 08:33:00 08:33:00 [facility] ent [facility] 2019-10-04 2019-10-04 [facility] [id number] 13:40:00 13:40:00 [facility] ent [facility] 2019-10-04 2019-10-04 [facility] [id number] 08:51:00 08:51:00 e-Tag [facility] ent [facility] 2019-04-09 2019-04-09 [facility] [id number] 16:00:00 16:00:00 [facility] ent [facility] 2019-04-04 2019-04-04 [facility] [id number] 10:15:00 10:15:00 [facility] 2019-03-28 2019-03-28 [facility] [id number] 13:30:00 13:30:00 t [facility] Womens Care L es - Care [facility] 2019-03-26 2019-03-26 [facility] [id number] 09:46:00 09:46:00 t [facility] Womens Care L [facility] - Care Clinic [facility] 2019-03-21 2019-03-21 [facility] [id number] 15:45:00 15:45:00 t Womens Womens Care L es - Care Clinic [facility] 2019-02-21 2019-02-21 [facility] [id number] 10:45:00 10:45:00 t [facility]ens [facility]ens Care [facility] - Care Clinic [facility] 2019-02-15 2019-02-15 [facility] [id number] 14:00:00 14:00:00 t Womens Womens Care L es - Care Clinic [facility] 2019-02-06 2019-02-06 [facility] [id number] 10:00:00 10:00:00 t Womens [facility]omens Care [facility] - Care [facility] 2019-01-25 2019-01-25 [facility] [id number] 13:45:00 13:45:00 t Womens Womens Care L es - Care Clinic [facility] 2019-01-11 2019-01-11 [facility] [id number] 14:45:00 14:45:00 t Womens Womens Care [facility] - Care [facility] 2019-01-03 2019-01-03 [facility] [id number] 08:11:00 08:11:00 t [facility] 2018-12-28 2018-12-28 [facility] [id number] 15:30:00 15:30:00 t Womens Womens Care [facility] - Care Clinic [facility] 2018-12-18 2018-12-18 [facility] [id number] 09:46:00 09:46:00 t Womens Womens Care [facility] - Care Clinic [facility] 2018-12-14 2018-12-14 [facility] [id number] 16:00:00 16:00:00 t Womens Womens Care L [facility] - Care [facility] Outpati ent [facility] 2018-12-08 2018-12-08 [facility] [id number] 11:21:00 11:21:00 t Womens Womens Care L [facility] - Care [facility] 2018-12-05 2018-12-05 [facility] [id number] 10:00:00 10:00:00 t Womens Womens Care [facility] - [facility] 2018-10-26 2018-10-26 [facility] [id number] 15:45:00 15:45:00 t Womens Womens Care [facility] - [facility] 2018-10-02 2018-10-02 [facility] [id number] 13:30:00 13:30:00 t Womens Womens Care L [facility] - Care [facility] Outpati ent [facility] 2018-09-18 2018-09-18 [facility] [id number] 11:33:00 11:33:00 t Womens Womens Care L [facility] - [facility] 2018-08-31 2018-08-31 [facility] [id number] 15:45:00 15:45:00 t Womens Womens Care L es - Care [facility] 2018-08-17 2018-08-17 [facility] [id number] 13:09:00 13:09:00 t Womens Womens Care L u[facility] - Care [facility] 2018-08-03 2018-08-03 [facility] [id number] 14:30:00 14:30:00 t Womens [facility]ens Care [facility] 2018-03-21 2018-03-21 [facility] [id number] 09:00:00 09:00:00 t [facility] Results This patient has no known results.
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
[2020-03-13 11:32] VITALS: BP 116/74; TEMP 98.7; O2SAT 100
== END 2020-03-13 11:26 | disposition home or self-care (01) ==
LOC: ER 09:27
DX: S13.4XXA Sprain of ligaments of cervical spine, initial encounter (principal); V49.40XA Driver injured in collision with unspecified motor vehicles in traffic accident, initial encounter
CPT/HCPCS: 72125; 99283; Q9967

== ENCOUNTER 2021-10-21 21:41 | Inpatient (IN) | payer OTHER, SELFPAY ==
--- OUTSIDE RECORDS SUMMARY | 2021-10-21 21:45 | XMS REPORT | Continuity of Care Document ---
:2000 Author Organization [facility] t Address [address] [place] [address] Care Team Providers Name Role Phone Pcp, Does Not Have A Primary Care Physician Caio Donnelly MD Attending Clinician Problems Condition Condition Condition Status Onset Resolution Last Treating Co mments Source Name Details Category Date Date Treatment Clinician Date Pelvic Pelvic Disease Active 2019-06 [facility] cramping cramping 06-30 [facility] 00:[facility]: [place] [facility] Presence Presence Disease Active 2019-06 Unive rs of 52 mg of 52 mg 06-30 ity of [place] trel-rele[place]rel-relea 00 Me dical sing sing Branch intrauteri intrauteri ne device ne device (IUD) (IUD) Irregular Irregular Problem Active [facility] heart rate heart rate Jacki kes - [facility]oria [facility] Depression Depression Problem Active [facility] with with [facility] - anxiety anxiety [facility] Supervisio Supervisio Problem Active [facility] n of other n of other Jacki kes - high risk high risk Jaswinder antonio pregnancie pregnancie l s, s, Outpati unspecifie unspecifie en t d d Clinics trimester trimester Unspecifie Unspecifie Problem Active [facility] d blood d blood [facility] - type, Rh type, Rh Memori a negative negative l Outpati ent Clinics Other Other Problem Active [facility] specified specified Luke s - Jaswinder antonio related related l conditions conditions Ou tpati , , ent unspecifie unspecifie Cl inics d d trimester trimester Underimmun Underimmun Problem Active [facility] ization ization [facility] - status status Memoria l [facility] ent Clinics Supervisio Supervisio Problem Active [...] - d type d type Memoria l [facility] Sleep Sleep Problem Active [facility] apnea in apnea in [facility] - adult adult Memoria l [facility] Excessive Excessive Problem Active [facility] daytime daytime [facility] - sleepiness sleepiness Me moria l [facility] ent Clinics Allergies, Adverse Reactions, Alerts This patient has no known allergies or adverse reactions. Social History Social Habit Start Date Stop Date Quantity Comments Source Exposure to Not sure [facility] SARS-CoV-2 [facility] (event) [place] Alcohol intake 2021-06-17 2021-06-17 Current drinker Unive rsity of 00:00:00 00:00:00 of alcohol [facility] (finding) [place] Tobacco use and 2020-04-30 2020-04-30 Never used Universit y of exposure 00:00:00 00:00:00 [facility] Sex Assigned At [birth year] Universit [facility] 00:00:00 00:00:00 [facility] Smoking Status Start Date Stop Date Source Never smoker [facility] Medications Ordered Filled Start Stop Current Ordering Indication Dosage Frequency Signature Comments Components Source Medication Medication Date Date Medication? Clinician (SIG) Name Name No known 2020-06 No Univers medications - ity of 10:49: [address] No known 2020-06 No Univers medications - ity of 10:49: [address] Ferralet 90 Ferralet 90 Yes Bhavana [address] [address] 6-21 Louise after a [facility] - 00:00: meal [facility]oria [facility] ent Clinics CitraNatal CitraNatal Yes Bhavana as [facility] 90 DHA 90 DHA 6-21 Louise directed [facility] - 00:00: [facility] Clinics Vital Signs Vital Name Observation Time Observation Value Comments Source Heart rate 2021-06-17 16:49:00 80 /min [facility] Body temperature 2021-06-17 16:49:00 36.94 [facility] Respiratory rate 2021-06-17 16:49:00 18 /min [facility] Body height 2021-06-17 16:49:00 160 cm [facility] Body weight 2021-06-17 16:49:00 57.607 kg [facility] BMI 2021-06-17 16:49:00 22.50 kg/m2 [facility] Systolic blood 2021-06-17 16:49:00 102 mm[Hg] Univer sity [facility] Diastolic blood 2021-06-17 16:49:00 66 mm[facility]Hg] [facility] This patient has no known procedures. Encounters Start End Encounter Admission Attending Care Care Encounter Source Date/Time Date/Time Type Type Clinicians Facility Department ID 2021-06-17 2021-06-17 Office Ad, [facility] [id number] Univers 10:30:00 11:27:15 Visit Deena BLUE [id number] [facility] [id number] Alfredito MATTHEWS [id number] [address] 2019-10-08 2019-10-08 [facility] [id number] [address] 08:33:00 08:33:00 t [facility] Family Medicine l Medicine Outpati ent Clinics 2019-10-04 2019-10-04 [facility] [id number] 13:40:00 13:40:00 t [facility] Medicine l Medicine Outpati ent Clinics 2019-10-04 2019-10-04 [facility] [id number] 08:51:00 08:51:00 [employer] [place] [facility] Family Medicine l Medicine Outpati ent Clinics 2019-04-09 2019-04-09 [facility] [id number] [address] 16:00:00 16:00:00 t [facility] Medicine [facility] 2019-04-04 2019-04-04 [facility] [id number] 10:15:00 10:15:00 [facility][note 3] 2019-03-28 2019-03-28 [facility] [id number] 13:30:00 13:30:00 [facility][note 3] 2019-03-26 2019-03-26 [facility] [id number] 09:46:00 09:46:00 [facility][note 3] 2019-03-21 2019-03-21 [facility] [id number] 15:45:00 15:45:00 [facility][note 3] 2019-02-21 2019-02-21 [facility] [id number] 10:45:00 10:45:00 [facility][note 3] 2019-02-15 2019-02-15 [facility] [id number] 14:00:00 14:00:00 [facility][note 3] 2019-02-06 2019-02-06 [facility] [id number] 10:00:00 10:00:00 [facility][note 3] 2019-01-25 2019-01-25 [facility] [id number] 13:45:00 13:45:00 t [facility][note 3] 2019-01-11 2019-01-11 [facility] [id number] 14:45:00 14:45:00 t [facility][note 3] 2019-01-03 2019-01-03 [facility] [id number] 08:11:00 08:11:[address] [facility] 2018-12-28 2018-12-28 [facility] [id number] 15:30:00 15:30:00 t [facility] 2018-12-18 2018-12-18 [facility] [id number] 09:46:00 09:46:00 t [facility] 2018-12-14 2018-12-14 [facility] [id number] 16:00:00 16:00:00 t [facility] 2018-12-08 2018-12-08 [facility] [id number] 11:21:00 11:21:00 t [facility] 2018-12-05 2018-12-05 [facility] [id number] 10:00:00 10:00:00 [facility] 2018-10-26 2018-10-26 [facility] [id number] 15:45:00 15:45:00 t [facility] 2018-10-02 2018-10-02 [facility] [id number] 13:30:00 13:30:00 t [facility] 2018-09-18 2018-09-18 [facility] [id number] 11:33:00 11:33:00 t [facility] 2018-08-31 2018-08-31 [facility] [id number] 15:45:00 15:45:00 t [facility][note 3] 2018-08-17 2018-08-17 Outpatient Andrez Maguiret [id number] 13:09:00 13:09:00 t [facility] Outpati ent [facility] 2018-08-03 2018-08-03 Outpatient Andrez Maguiret [id number] [address] 14:30:00 14:30:00 t [facility] ent [facility] 2018-03-21 2018-03-21 Outpatient Andrez Maguiret [id number] [facility] 09:00:00 09:00:00 t [facility] Family Medicine Medicine [facility] ent Clinics Results This patient has no known results.
[2021-10-21] MEDS ORDERED: NA CHLORIDE 0.9% 1,000 ML ONE ×2 (22:01→22:09)
[2021-10-21] MEDS ORDERED: ONDANSETRON 4 MG/2 ML VIAL ONE (22:01)
[2021-10-21] MEDS ORDERED: MORPHINE 2 MG/ML SYR ONE (22:09)
[2021-10-21] MEDS ORDERED: FAMOTIDINE 20 MG/2 ML VIAL IV ONE (22:09)
[2021-10-21] MEDS ORDERED: PROMETHAZINE INJ 25 MG/ML AMP ONE (22:17)
[2021-10-21 22:25] LABS: Absolute Lymphocytes (CBC) 1.3 K/uL (0.7-4.9); Hematocrit 39.9 % (36.0-45.0); Lymphocytes % 7.2 % (15.3-44.8); MPV 8.8 fL (7.6-11.3); RBC Red Blood Cell Count 4.36 M/uL (3.86-4.86)
[2021-10-21 22:44] LABS: ALT/SGPT 31 U/L (12-78); AST/SGOT 20 U/L (15-37); Albumin 4.4 g/dL (3.4-5.0); Alkaline Phosphatase 55 U/L (45-117); BUN Blood Urea Nitrogen 20 mg/dL (7-18); Bicarbonate 22 mmol/L (21-32); Bilirubin Total 0.6 mg/dL (0.2-1.0); Glucose Level 154 mg/dL (74-106); Lipase 1285 U/L (73-393); Potassium 3.6 mmol/L (3.5-5.1); Protein, Total 7.6 g/dL (6.4-8.2); Sodium Level 138 mmol/L (136-145)
[2021-10-21 23:52] LABS: Blood Morphology Comment NOT SEEN (NOT SEEN); Platelet Estimate ADEQ
[2021-10-22 00:09] LABS: Urine Blood Negative (Negative); Urine Glucose Negative (Negative); Urine Protein Negative (Negative); Urine Specific Gravity >=1.030 (1.005-1.030); Urine pH 5.5 (5.0-7.0)
[2021-10-22] MEDS ORDERED: NA CHLORIDE 0.9% 1,000 ML ONE ×3 (00:14→11:41)
[2021-10-22] MEDS ORDERED: NA CHLORIDE 0.9% 50 ML ONE (00:14)
[2021-10-22] MEDS ORDERED: CEFTRIAXONE 1000 MG/VIAL ONE (00:14)
[2021-10-22 00:24] LABS: Urine Bacteria <20 /HPF (<20); Urine Mucus 2+ /HPF (NONE SEEN); Urine RBC <5 /HPF (NONE SEEN)
[2021-10-22 00:27] LABS: Barbiturates NEGATIVE (NEGATIVE); Benzodiazepines NEGATIVE (NEGATIVE); Cocaine NEGATIVE (NEGATIVE); METHAMPHETAM NEGATIVE (NEGATIVE); Methadone NEGATIVE (NEGATIVE); Opiates POSITIVE (NEGATIVE); Phencyclidine NEGATIVE (NEGATIVE); THC Cannibis NEGATIVE (NEGATIVE)
[2021-10-22 01:06] LABS: SARS-COV-2 RT PCR NEGATIVE (NEGATIVE)
[2021-10-22] MEDS ORDERED: PROMETHAZINE INJ 25 MG/ML AMP ONE ×2 (01:33→02:55)
--- NOTE | 2021-10-22 01:57 | ER ---
Nurse's Notes [facility] Name: Gretel Jones Age: 21 yrs Sex: Female : 2000 Arrival Date: 10/21/2021 Time: 21:43 Bed 5 Private MD: Diagnosis: Vomiting;Idiopathic acute pancreatitis without necrosis or infection Presentation: 10/21 21:59 Chief complaint: Patient states: "I threw up at 6:30 now I can't stop dry heaving, I am vc1 nauseous and have diarrhea and my stomach hurts.". Coronavirus screen: Vaccine status: Patient reports being unvaccinated. chills, diarrhea, nausea, vomiting. Client presents with at least one sign or symptom that may indicate coronavirus-19. Standard/surgical mask placed on the client. Provider contacted for isolation considerations. Ebola Screen: No symptoms or risks identified at this time. Initial Sepsis Screen:. Risk Assessment: Do you want to hurt yourself or someone else? Patient reports no desire to harm self or others. Onset of symptoms was October 21, 2021 at 18:30. 21:59 Method Of Arrival: Ambulatory vc1 21:59 Acuity: BIJU 3 vc1 22:19 Initial Sepsis Screen: Does the patient meet any 2 criteria? HR > 90 bpm. Does the tw5 patient have a suspected source of infection? Yes: Acute abdominal pain. Triage Assessment: 22:01 General: Appears uncomfortable, ill, slender, Behavior is cooperative. Pain: Complains vc1 of pain in right lower quadrant Pain does not radiate. Pain currently is 4 out of 10 on a pain scale. EENT: No deficits noted. Neuro: No deficits noted. [place] Agitation-Sedation Scale (RASS): +1 Restless. Cardiovascular:. Respiratory: No deficits noted. GI: Patient trying but unable to vomit. Reports lower abdominal pain, diarrhea, nausea, vomiting. : No deficits noted. Derm: Skin temperature is cool. Musculoskeletal: No deficits noted. 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 Flu vaccine is not up to date. - Social history:: Smoking status: Patient denies any tobacco usage or history of. Screenin:04 Abuse screen: Denies threats or abuse. Nutritional screening: No deficits noted. vc1 Tuberculosis screening: No symptoms or risk factors identified. Fall Risk None identified. Assessment: 22:00 General: Reports "I have been feeling sick for three hours.". Pain: Complains of pain tw5 in right lower quadrant Pain currently is 4 out of 10 on a pain scale. Quality of pain is described as crampy. Neuro: No deficits noted. Respiratory: Airway is patent Trachea midline Respiratory effort is even, unlabored. GI: Pt is actively vomiting clear fluid. 22:09 General: Appears slender, Behavior is cooperative, appropriate for age. tw5 22:19 GI: Pt is actively vomiting clear fluid. tw5 23:56 Reassessment: Patient appears in no apparent distress at this time. No changes from lg3 previously documented assessment. Patient and/or family updated on plan of care and expected duration. Pain level reassessed. Patient is alert, oriented x 3, equal unlabored respirations, skin warm/dry/pink. 10/22 00:09 Reassessment: Patient states feeling better. Patient states symptoms have improved. tw5 General: Reports "I am feeling a lot better.". Pain: Denies pain. 01:31 General: pt actively vomiting clear fluid at this time . lg3 Vital Signs: 10/21 21:59 BP 117 / 74; Pulse 107 RA; Temp 97(TE); Pulse Ox 98% on R/A; Weight 56.7 kg; Height 5 vc1 ft. 3 in. (160.02 cm); Pain 4/10; 22:09 BP 169 / 137; Pulse 96; Resp 18; Pulse Ox 98% on R/A; Pain 4/10; tw5 22:18 BP 161 / 146; Pulse 94; Pulse Ox 97% on R/A; Pain 5/10; tw5 22:45 BP 127 / 71; Resp 12; tw5 22:46 Pain 2/10; tw5 10/22 00:09 BP 95 / 60; Pulse 63; Resp 14; Pulse Ox 97% on R/A; Pain 0/10; tw5 01:51 BP 104 / 63; Pulse 73; Pulse Ox 100% ; lg3 10/21 21:59 Body Mass Index 22.14 (56.70 kg, 160.02 cm) vc1 10/21 21:59 Patient actively dry heaving during triage, unable to count respirations. vc1 ED Course: 21:43 Patient arrived in ED. ja2 21:45 Asif Mcginnis PA is PHCP. cp 21:45 Esdras Ortiz MD is Attending Physician. cp 21:47 Rani Benitez RN is Primary Nurse. lg3 22:01 Triage completed. vc1 22:04 Arm band placed on right wrist. vc1 22:04 Patient has correct armband on for positive identification. Bed in low position. Call vc1 light in reach. Side rails up X2. 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 Pulse ox on. 22:09 Awaiting lab results. tw5 22:09 Placed in gown. Adult w/ patient. Door closed. Noise minimized. Moved to private room. tw5 Verbal reassurance given. 22:09 Initial lab(s) drawn, by me, sent to lab. Inserted saline lock: 20 gauge in right tw5 antecubital area, using aseptic technique. Blood collected. 10/22 00:01 US Abdomen Limited: RUQ/epigastric In Process Unspecified. EDMS 00:[address] tw5 00:19 First set of blood cultures drawn by ED staff, Second set of blood cultures drawn by tw5 me. Inserted saline lock: 22 gauge in left antecubital area, using aseptic technique. Blood collected. 00:19 Procalcitonin Sent. tw5 00:19 Blood Culture Adult (2) Sent. tw5 00:19 Lactate Sent. tw5 00:36 CT Abd/Pelvis - IV Contrast Only In Process Unspecified. EDMS 01:23 Comprehensive Metabolic Panel Sent. lg3 01:50 Comprehensive Metabolic Panel Sent. lg3 01:55 Musa Rucker is Hospitalizing Provider. kdr 05:14 No provider procedures requiring assistance completed. Patient admitted, IV remains in lg3 place. Administered Medications: 10/21 22:06 Drug: Zofran (Ondansetron) 4 mg Route: IVP; Site: right antecubital; tw5 22:35 Follow up: Response: No adverse reaction lg3 22:07 Drug: Pepcid (famotidine) 20 mg Route: IVP; Site: right antecubital; tw5 22:35 Follow up: Response: No adverse reaction lg3 22:07 Drug: morphine 2 mg Route: IVP; Site: right antecubital; tw5 22:34 Follow up: Response: No adverse reaction; RASS: Alert and Calm (0) lg3 22:46 Follow up: Pain 2/10 Adult; Response: No adverse reaction; Pain is decreased; RASS: tw5 Drowsy (-1) 22:07 Drug: NS 0.9% 1000 ml Route: IV; Rate: 1 bolus; Site: right antecubital; tw5 10/22 03:20 Follow up: Response: No adverse reaction; IV Status: Completed infusion; IV Intake: lg3 1000ml 10/21 22:08 Drug: NS 0.9% 1000 ml Route: IV; Rate: 1 bolus; Site: right antecubital; tw5 10/22 03:20 Follow up: Response: No adverse reaction; IV Status: Completed infusion; IV Intake: lg3 1000ml 10/21 22:16 Drug: Phenergan (promethazine) 12.5 mg Route: IVP; Site: right antecubital; tw5 22:34 Follow up: Response: No adverse reaction lg3 22:46 Follow up: Response: Nausea is decreased tw5 10/22 00:43 Drug: NS 0.9% 1000 ml Route: IV; Rate: 1 bolus; Site: right antecubital; tw5 03:20 Follow up: Response: No adverse reaction; IV Status: Completed infusion; IV Intake: lg3 1000ml 00:43 Drug: Rocephin - (cefTRIAXone) 1 grams Route: IVPB; Infused Over: 30 mins; Site: right tw5 antecubital; 03:20 Follow up: Response: No adverse reaction; IV Status: Completed infusion; IV Intake: 00ylmo5 01:31 Drug: Phenergan (promethazine) 12.5 mg Route: IVP; Site: right antecubital; lg3 01:31 Follow up: Response: No adverse reaction lg3 01:53 Not Given (Physician Discretion): NS 0.9% 1000 ml IV at 1 bolus Per protocol; 1000 mL tw5 bolus 02:56 Drug: Phenergan (promethazine) 12.5 mg Route: IVP; Site: right antecubital; lg3 02:56 Follow up: Response: No adverse reaction lg3 03:19 Drug: Reglan (metoCLOPramide) 10 mg Route: IVP; Site: right antecubital; lg3 03:19 Follow up: Response: No adverse reaction lg3 Intake: 03:20 IV: 50ml; Total: 50ml. lg3 03:20 IV: 1000ml; Total: 1050ml. lg3 03:20 IV: 1000ml; Total: 2050ml. lg3 03:20 IV: 1000ml; Total: 3050ml. lg3 Outcome: 01:57 Decision to Hospitalize by Provider. kdr 05:15 Admitted to Med/surg lg3 05:15 Condition: stable 05:15 Instructed on the need for admit. 15:24 Admitted to Med/surg accompanied by tech, via wheelchair, room 205, with chart, Report vg1 called to Susan MARINELLI 15:24 Condition: improved 15:24 Instructed on the need for admit. 15:24 Patient left the ED. vg1 Signatures: Dispatcher [employer] EDEsdras Tomas MD MD kdr Asif Mcginnis PA PA cp Gibson, Lacie, RN RN lg3 Mayi Harmon RN RN vg1 Yuli Guzman Tiffany tw5 Vannesa Vu RN RN vc1
--- NOTE | 2021-10-22 01:57 | EDPHYS ---
Physician Documentation [facility] Name: Gretel Jones Age: 21 yrs Sex: Female : 2000 Arrival Date: 10/21/2021 Time: 21:43 Bed 5 Private MD: ED Physician Esdras Ortiz HPI: 10/21 22:00 This 21 yrs old Female presents to ER via Unassigned with complaints of cp Nausea/Vomiting/Diarrhea, Abdominal Cramping. 22:00 The patient presents to the emergency department with nausea, with "dry heaves", cp vomiting, that is continuous, described as bilious, diarrhea, that is intermittent, abdominal pain, of the abdomen diffusely. 22:00 Onset: The symptoms/episode began/occurred this evening at about 1800. Possible causes: cp sick contacts, by family, daughter. Associated signs and symptoms: Pertinent negatives: constipation, dysuria, fever, GI bleeding. Severity of symptoms: in the emergency department the symptoms are unchanged despite home interventions. 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 Flu vaccine is not up to date. - Social history:: Smoking status: Patient denies any tobacco usage or history of. ROS: 22:05 Constitutional: Negative for fever. cp 22:05 Eyes: Negative for injury, pain, redness, and discharge. cp 22:05 ENT: Negative for drainage from ear(s), ear pain, sore throat, difficulty swallowing, difficulty handling secretions. 22:05 Cardiovascular: Negative for chest pain. 22:05 Respiratory: Negative for cough, shortness of breath, wheezing. 22:05 Abdomen/GI: Positive for abdominal pain, nausea, vomiting, and diarrhea, Negative for constipation, hematemesis, black/tarry stool, rectal bleeding. 22:05 Neuro: Negative for altered mental status, dizziness, headache, weakness. 22:05 All other systems are negative. Exam: 22:10 Constitutional: The patient appears in no acute distress, alert, awake, non-toxic, well cp developed, well nourished, uncomfortable. 22:10 Head/Face: Normocephalic, atraumatic. cp 22:10 Eyes: Periorbital structures: appear normal, Conjunctiva: normal, no exudate, no injection, Sclera: no appreciated abnormality, Lids and lashes: appear normal, bilaterally. 22:10 ENT: External ear(s): are unremarkable, Nose: is normal, Mouth: Lips: moist, Oral mucosa: pink and intact, moist, Posterior pharynx: Airway: no evidence of obstruction, patent. 22:10 Chest/axilla: Inspection: normal. 22:10 Cardiovascular: Rate: tachycardic, Rhythm: regular, Heart sounds: murmur, not appreciated, JVD: is not appreciated. 22:10 Respiratory: the patient does not display signs of respiratory distress, Respirations: normal, no use of accessory muscles, no retractions, labored breathing, is not present, Breath sounds: are clear throughout, no decreased breath sounds, no stridor, no wheezing. 22:10 Abdomen/GI: Inspection: abdomen appears normal, Bowel sounds: active, all quadrants, Palpation: soft, in all quadrants, mild abdominal tenderness, in all quadrants, rebound tenderness, is not appreciated, voluntary guarding, is not appreciated, involuntary guarding, is not appreciated. 22:10 Back: CVA tenderness, is absent. Vital Signs: 21:59 BP 117 / 74; Pulse 107 RA; Temp 97(TE); Pulse Ox 98% on R/A; Weight 56.7 kg; Height 5 vc1 ft. 3 in. (160.02 cm); Pain 4/10; 22:09 BP 169 / 137; Pulse 96; Resp 18; Pulse Ox 98% on R/A; Pain 4/10; tw5 22:18 BP 161 / 146; Pulse 94; Pulse Ox 97% on R/A; Pain 5/10; tw5 22:45 BP 127 / 71; Resp 12; tw5 22:46 Pain 2/10; tw5 05 00:09 BP 95 / 60; Pulse 63; Resp 14; Pulse Ox 97% on R/A; Pain 0/10; tw5 01:51 BP 104 / 63; Pulse 73; Pulse Ox 100% ; lg3 05 21:59 Body Mass Index 22.14 (56.70 kg, 160.02 cm) vc1 05 21:59 Patient actively dry heaving during triage, unable to count respirations. vc1 MDM: 21:50 Patient medically screened. cp 22:10 Differential diagnosis: Nonspecific abd pain, gastritis, cholecystitis, appendicitis, cp viral gastroenteritis, gastroenteritis. 10/22 01:58 Data reviewed: vital signs, nurses notes, lab test result(s), radiologic studies. kdr Counseling: I had a detailed discussion with the patient and/or guardian regarding: the historical points, exam findings, and any diagnostic results supporting the discharge/admit diagnosis, lab results, radiology results. 10/21 21:52 Order name: CBC with Diff; Complete Time: 23:55 [facility] 10/21 23:28 Interpretation: Normal except: WBC 18.5; JOSÉ% 88.9; LYM% 7.2; NEUT A 16.4. 10/21 21:52 Order name: CMP; Complete Time: 23:27 [facility] 10/21 23:28 Interpretation: Normal except: CL 108; GLUC 154; BUN 20. cp 10/21 21:52 Order name: Lipase; Complete Time: 23:27 kdr 10/21 23:28 Interpretation: Abnormal: LIP 1285. cp 10/21 21:55 Order name: Urine Microscopic Only; Complete Time: 00:36 cp 10/21 22:02 Order name: Urine Drug Screen; Complete Time: 00:36 EDMS 10/21 22:39 Order name: Manual Differential; Complete Time: 23:55 EDMS 10/21 23:57 Interpretation: Normal except: SEGS 85; BANDS [F] 7; LYM 6. cp / 23:05 Order name: COVID-19/FLU A+B (Document "Date of Onset" if Symptomatic); Complete Time: mw2 01:10 10/21 23:58 Order name: Lactate; Complete Time: 01:10 cp 10/21 23:58 Order name: Blood Culture Adult (2) cp / 23:58 Order name: Procalcitonin; Complete Time: 01:10 cp 05/ 00:10 Order name: Urine Dipstick-Ancillary; Complete Time: 00:36 EDMS 10/21 22:53 Order name: CT Abd/Pelvis - IV Contrast Only cp 05/04 23:33 Order name: US Abdomen Limited: RUQ/epigastric; Complete Time: 12:20 cp 10/22 01:12 Order name: Comprehensive Metabolic Panel; Complete Time: 02:49 kdr 10/22 04:40 Order name: CBC with Automated Diff; Complete Time: 12:20 EDMS 10/22 05:02 Order name: Hemoglobin A1c; Complete Time: 12:20 EDMS 10/22 08:52 Order name: Basic Metabolic Panel; Complete Time: 12:20 EDMS 10/22 08:52 Order name: Phosphorus; Complete Time: 12:20 EDMS 10/22 08:52 Order name: Lipid Profile; Complete Time: 12:20 EDMS 10/22 08:52 Order name: Magnesium; Complete Time: 12:20 EDMS 10/22 08:52 Order name: Lipase; Complete Time: 12:20 EDMS 10/21 21:52 Order name: IV Saline Lock; Complete Time: 22:09 kdr 10/21 21:52 Order name: Labs collected and sent; Complete Time: 22:09 kdr 10/21 21:58 Order name: Urine Dipstick-Ancillary (obtain specimen); Complete Time: 00:11 cp 10/21 21:58 Order name: Urine Test (obtain specimen); Complete Time: 00:11 cp Administered Medications: 10/21 22:06 Drug: Zofran (Ondansetron) 4 mg Route: IVP; Site: right antecubital; tw5 22:35 Follow up: Response: No adverse reaction lg3 22:07 Drug: Pepcid (famotidine) 20 mg Route: IVP; Site: right antecubital; tw5 22:35 Follow up: Response: No adverse reaction lg3 22:07 Drug: morphine 2 mg Route: IVP; Site: right antecubital; tw5 22:34 Follow up: Response: No adverse reaction; RASS: Alert and Calm (0) lg3 22:46 Follow up: Pain 2/10 Adult; Response: No adverse reaction; Pain is decreased; RASS: tw5 Drowsy (-1) 22:07 Drug: NS 0.9% 1000 ml Route: IV; Rate: 1 bolus; Site: right antecubital; tw5 10/22 03:20 Follow up: Response: No adverse reaction; IV Status: Completed infusion; IV Intake: lg3 1000ml 10/21 22:08 Drug: NS 0.9% 1000 ml Route: IV; Rate: 1 bolus; Site: right antecubital; tw5 10/22 03:20 Follow up: Response: No adverse reaction; IV Status: Completed infusion; IV Intake: lg3 1000ml 10/21 22:16 Drug: Phenergan (promethazine) 12.5 mg Route: IVP; Site: right antecubital; tw5 22:34 Follow up: Response: No adverse reaction lg3 22:46 Follow up: Response: Nausea is decreased tw5 10/22 00:43 Drug: NS 0.9% 1000 ml Route: IV; Rate: 1 bolus; Site: right antecubital; tw5 03:20 Follow up: Response: No adverse reaction; IV Status: Completed infusion; IV Intake: lg3 1000ml 00:43 Drug: Rocephin - (cefTRIAXone) 1 grams Route: IVPB; Infused Over: 30 mins; Site: right tw5 antecubital; 03:20 Follow up: Response: No adverse reaction; IV Status: Completed infusion; IV Intake: [id number] 01:31 Drug: Phenergan (promethazine) 12.5 mg Route: IVP; Site: right antecubital; lg3 01:31 Follow up: Response: No adverse reaction lg3 01:53 Not Given (Physician Discretion): NS 0.9% 1000 ml IV at 1 bolus Per protocol; 1000 mL tw5 bolus 02:56 Drug: Phenergan (promethazine) 12.5 mg Route: IVP; Site: right antecubital; lg3 02:56 Follow up: Response: No adverse reaction lg3 03:19 Drug: Reglan (metoCLOPramide) 10 mg Route: IVP; Site: right antecubital; lg3 03:19 Follow up: Response: No adverse reaction lg3 Disposition: 01:58 Co-signature as Attending Physician, Esdras Ortiz MD I agree with the assessment and kdr plan of care. Disposition Summary: 10/22/21 01:57 Hospitalization Ordered Hospitalization Status: Inpatient Admission kdr Provider: Musa Rucker Condition: Fair kdr Problem: new kdr Symptoms: have improved kdr Bed/Room Type: Standard kdr Location: Telemetry/MedSurg (Inpatient)(10/22/21 14:44) bd Room Assignment: [facility](10/22/21 14:44) bd Diagnosis - Vomiting kdr - Idiopathic acute pancreatitis without necrosis or infection kdr Forms: - Medication Reconciliation Form kdr - SBAR form kdr Signatures: Dispatcher [employer] EDMS Rosario fraga bd Esdras Ortiz MD MD kdr Asif Mcginnis PA PA cp Garcia, Cindy, RN RN cg Rani Benitez RN RN lg3 Viki Raya tw5 Vannesa Vu RN RN vc1 Angelica Roger PA PA sb3 Corrections: (The following items were deleted from the chart) 10/21 22:00 21:59 This 21 yrs old Female presents to ER via Unassigned with complaints of cp Nausea/Vomiting/Diarrhea, Abdominal Cramping. cp 23:28 23:27 Normal except: WBC 18.5; JOSÉ% 88.9; LYM% 7.2. cp cp 10/22 00:31 10/21 22:00 URINE DRUG SCREEN+UC.LAB.BRZ ordered. EDNV EDNV 10/22 02:17 01:57 Telemetry/MedSurg (Inpatient) kdr cg 02:17 01:57 kdr cg 14:44 02:17 BR ER HOLD cg bd 14:44 02:17 ERHOLD- cg bd
[2021-10-22 02:25] LABS: ALT/SGPT 23 U/L (12-78); AST/SGOT 14 U/L (15-37); Albumin 3.2 g/dL (3.4-5.0); Alkaline Phosphatase 40 U/L (45-117); BUN Blood Urea Nitrogen 15 mg/dL (7-18); Bicarbonate 20 mmol/L (21-32); Bilirubin Total 0.4 mg/dL (0.2-1.0); Glucose Level 113 mg/dL (74-106); Potassium 3.4 mmol/L (3.5-5.1); Protein, Total 5.8 g/dL (6.4-8.2); Sodium Level 141 mmol/L (136-145)
--- NOTE | 2021-10-22 02:31 | P.HP ---
Certification for Inpatient Patient admitted to: Inpatient With expected LOS: <2 Midnights Patient will require the following post-hospital care: None Practitioner: I am a practitioner with admitting privileges, knowledge of patient current condition, hospital course, and medical plan of care. Services: Services provided to patient in accordance with Admission requirements found in Title 42 Section 412.3 of the Code of Federal Regulations Patient History Date of Service: 10/22/21 Reason for admission: Acute Pancreatitis History of Present Illness: Patient is a 21 y/o F who presented to the ED with complaints of n/v/d and abdominal pain that began this evening. She denies any previous episodes or problems with her gallbladder. Workup revealed WBC 18, lipase 1285, glucose 150, CT and US abd negative. She was given zofran, pepcid, 3L fluid, morphine, phenegran, and rocephin in the ED. Upon my assessment, patient states that she is not experiencing abdominal pain anymore but still has moderate nausea and has continued vomiting. Will admit patient for further evaluation and treatment. Allergies No Known Allergies Allergy (Unverified 12/18/18 11:40) Home medications list reviewed: Yes Home Medications: Pnv No.95/Ferrous Fum/Folic AC [ Formula Tablet] 1 tab PO DAILY 12/18/18 - Past Medical/Surgical History Diabetic: No Past Medical History: Patient denies medical history Past Surgical History: Patient denies surgical history Psychosocial/ Personal History: Patient lives at home with her son. - Family History Family History: Reviewed- Non-Contributory - Social History Smoking Status: Never smoker Alcohol use: No CD- Drugs: No Caffeine use: Yes Place of Residence: Home Review of Systems 10-point ROS is otherwise unremarkable Gastrointestinal: Nausea, Vomiting, Abdominal Pain, Diarrhea Physical Examination - Physical Exam General: Alert, In no apparent distress, Oriented x3 HEENT: Atraumatic, PERRLA, Other (dry mucous membranes ), EOMI, Sclerae nonicteric Neck: Supple, 2+ carotid pulse no bruit, No LAD, Without JVD or thyroid abnormality Respiratory: Clear to auscultation bilaterally, Normal air movement Cardiovascular: Regular rate/rhythm, Normal S1 S2 Gastrointestinal: Normal bowel sounds, No tenderness Musculoskeletal: No tenderness Integumentary: No rashes Neurological: Normal speech, Normal strength at 5/5 x4 extr, Normal tone, Normal affect - Studies Laboratory Data (last 24 hrs) 10/21/21 22:08: Sodium 138, Potassium 3.6, BUN 20 H, Creatinine 0.66, Glucose 154 H, Total Bilirubin 0.6, AST 20, ALT 31, Alkaline Phosphatase 55, Lipase 1285 H 10/21/21 22:08: WBC 18.5 H, Hgb 13.7, Hct 39.9, Plt Count 305 Assessment and Plan - Problems (Diagnosis) (1) Acute pancreatitis Current Visit: Yes Status: Acute Qualifiers: Pancreatitis type: unspecified pancreatitis type Acute pancreatitis co mplication: no infection or necrosis Qualified Code(s): K85.90 - Acute pancreatitis without necrosis or infection, unspecified - Plan -acute pancreatitis with lipase 1285 -CT and US abd negative -glucose elevated likely secondary but will check a1c -lipid panel ordered -cont IVF at 125 cc/hr -morphine PRN and phenegran PRN nausea -lovenox for VTE ppx Discharge Plan: Home Plan to discharge in: 48 Hours - Advance Directives Does patient have a Living Will: No Does patient have a Durable POA for Healthcare: No - Code Status/Comfort Care Code Status Assessed: Yes (Full) Critical Care: No Time Spent Managing Pts Care (In Minutes): 50
[2021-10-22] MEDS ORDERED: PROMETHAZINE INJ 25 MG/ML AMP IV PRN (02:42)
[2021-10-22] MEDS ORDERED: MORPHINE 2 MG/ML SYR IV PRN (02:42)
[2021-10-22 02:51] VITALS: BMI 21.7
[2021-10-22] MEDS: NA CHLORIDE 0.9% 1,000 ML IV SCH ×3 (03:00→19:51)
[2021-10-22] MEDS ORDERED: METOCLOPRAMIDE 10 MG/2mL INJ ONE (03:20)
[2021-10-22 04:38] LABS: Absolute Lymphocytes (CBC) 0.5 K/uL (0.7-4.9); Hematocrit 33.8 % (36.0-45.0); MPV 9.7 fL (7.6-11.3); RBC Red Blood Cell Count 3.65 M/uL (3.86-4.86)
[2021-10-22 08:52] LABS: BUN Blood Urea Nitrogen 10 mg/dL (7-18); Bicarbonate 21 mmol/L (21-32); Glucose Level 103 mg/dL (74-106); HDL Cholesterol 56 mg/dL (40-60); LDL Cholesterol, Calculated 48 mg/dL (<130); Lipase 114 U/L (73-393); Magnesium 1.7 mg/dL (1.8-2.4); Phosphorus 3.6 mg/dL (2.5-4.9); Potassium 3.5 mmol/L (3.5-5.1); Sodium Level 142 mmol/L (136-145)
[2021-10-22] MEDS: ENOXAPARIN 40 MG/0.4 ML SQ SCH (09:00)
[2021-10-22] MEDS ORDERED: ENOXAPARIN 40 MG/0.4 ML SQ ONE (09:24)
--- NOTE | 2021-10-22 12:11 | RAD REPORT ---
EXAM DESCRIPTION: US - Abdomen Exam Limited - 10/22/2021 12:42 am CLINICAL HISTORY: Nausea/vomiting COMPARISON: None TECHNIQUE: Grayscale, color Doppler, and duplex Doppler images of right upper abdomen. FINDINGS: No significant free fluid. Liver parenchyma grossly unremarkable and measures cm in length. Common bile duct measuring 3.8 mm diameter and within normal limits. No intra or extrahepatic biliary ductal dilatation. Gallbladder unremarkable without evidence of stones or inflammation. Negative sonographic Perez's sign. IMPRESSION: Unremarkable US right upper abdomen. Electronically signed by: Abdi Rosen MD 10/22/2021 12:17 AM CDT Due to temporary technical issues with the PACS/Fluency reporting system, reports are being signed by the in house radiologists without review as a courtesy to insure prompt reporting. The interpreting radiologist is fully responsible for the content of the report.
--- NOTE | 2021-10-22 12:20 | RAD REPORT ---
EXAM DESCRIPTION: CT - Abdomen Pelvis W Contrast - 10/22/2021 6:27 am CLINICAL HISTORY: 21 years Female Abdominal pain, acute, nonlocalized COMPARISON: None TECHNIQUE: Images were obtained in axial, sagittal, and coronal planes. Intravenous contrast was adm inistered. Arterial and venous phase imaging was performed in the axial projection. This exam was performed according to our departmental dose-optimization program which includes use of Automated Exposure Control, adjustment of the mA and/or kV according to patient size and/or use of iterative reconstruction technique. FINDINGS: No abnormality involving the liver, spleen, pancreas, or adrenal glands bilaterally. Moder ate gallbladder distention. No obstructing renal or ureteral calculi bilaterally. No hydronephrosis bilaterally. Unremarkable brain dder. Symmetric enhancement kidneys bilaterally. Appendix within normal limits. No bowel obstruction, perforation, or inflammation. No abnormality of abdominal aorta or portal vein. No adenopathy or abnormal fluid collections seen. No abnormality lower lungs bilaterally. No acute osseous abnormality. IMPRESSION: No acute intra-abdominal abnormality. Electronically signed by: Becca Obrien MD 10/22/2021 12:54 AM CDT Due to temporary technical issues with the PACS/Fluency reporting system, reports are being signed by the in house radiologists without review as a courtesy to insure prompt reporting. The interpreting radiologist is fully responsible for the content of the report.
--- NOTE | 2021-10-22 15:49 | P.PN ---
Date of Service: 10/22/21 Patient seen and examined. She states she feels much better today. She states that abdominal pain has resolved and wants her diet advanced.. On examination, abdomen is benign, nontender, normal bowel sounds. Diagnosis: Acute pancreatitis. Plan: Continue supportive measures. Start clear liquid diet and advance as tolerated. Serial lipase daily. Monitor and optimize electrolytes.
[2021-10-22 15:58] VITALS: O2SAT 100
[2021-10-22] MEDS ORDERED: MAGNES/ALUMIN/SIMET 30ML UCUP PO PRN (16:28)
[2021-10-22] MEDS: PANTOPRAZOLE 40MG TABLET PO SCH (16:52)
[2021-10-23] MEDS: NA CHLORIDE 0.9% 1,000 ML IV SCH (05:00)
[2021-10-23 05:01] LABS: Absolute Lymphocytes (CBC) 2.2 K/uL (0.7-4.9); Hematocrit 31.6 % (36.0-45.0); Lymphocytes % 36.5 % (15.3-44.8); MPV 9.7 fL (7.6-11.3); RBC Red Blood Cell Count 3.42 M/uL (3.86-4.86)
[2021-10-23 05:23] LABS: BUN Blood Urea Nitrogen 5 mg/dL (7-18); Bicarbonate 24 mmol/L (21-32); Glucose Level 87 mg/dL (74-106); Lipase 74 U/L (73-393); Magnesium 2.1 mg/dL (1.8-2.4); Phosphorus 1.9 mg/dL (2.5-4.9); Potassium 3.2 mmol/L (3.5-5.1); Sodium Level 144 mmol/L (136-145)
[2021-10-23] MEDS: PANTOPRAZOLE 40MG TABLET PO SCH (07:52)
[2021-10-23] MEDS: ENOXAPARIN 40 MG/0.4 ML SQ SCH (07:53)
[2021-10-23 08:47] VITALS: BP 104/56; TEMP 98.5
[2021-10-23] MEDS ORDERED: POTASSIUM CL SA 10 MEQ TAB PO ONE (09:00)
--- NOTE | 2021-10-23 17:21 | P.DS ---
Admission Date: 10/22/21 Discharge Date: 10/23/21 Disposition: ROUTINE DISCHARGE Discharge Condition: FAIR Reason for Admission: Acute Pancreatitis - Problems (1) Acute pancreatitis Status: Acute Qualifiers: Pancreatitis type: unspecified pancreatitis type Acute pancreatitis complication: no infection or necrosis Qualified Code(s): K85.90 - Acute pancreatitis without necrosis or infection, unspecified Brief History of Present Illness: Patient is a 21 y/o F who presented to the ED with complaints of n/v/d and abdominal pain. She denied any previous episodes or problems with her gallbladder. Workup revealed WBC 18, lipase 1285, glucose 150, CT and US abd negative. She was given zofran, pepcid, 3L fluid, morphine, phenegran, and rocephin in the ED. Patient admitted for further management of for further management of acute pancreatitis. Hospital Course: Patient admitted to the medical floor and started on supportive measures with IV fluids and pain management. Patient tolerated liquid diet, and later advance to soft diet which he tolerated. Lipase level normalized. Patient currently without symptoms and deemed stable for discharge. Vital Signs/Physical Exam: Temp Pulse Resp BP Pulse Ox 98.5 F 87 16 104/56 L 100 10/23/21 08:00 10/23/21 08:00 10/23/21 08:00 10/23/21 08:00 10/23/21 08:00 General: Alert, In no apparent distress, Oriented x3 HEENT: Mucous membr. moist/pink Neck: Supple, JVD not distended Respiratory: Clear to auscultation bilaterally, Normal air movement Cardiovascular: No edema, Regular rate/rhythm, Normal S1 S2 Gastrointestinal: Normal bowel sounds, Soft and benign, Non-distended Musculoskeletal: No swelling, No tenderness Integumentary: No rashes, No erythema Neurological: Normal strength at 5/5 x4 extr Laboratory Data at Discharge: WBC 6.0 K/uL (4.3-10.9) D 10/23/21 04:05 Hgb 10.8 g/dL (12.0-15.0) L 10/23/21 04:05 Hct 31.6 % (36.0-45.0) L 10/23/21 04:05 Plt Count 203 K/uL (152-406) 10/23/21 04:05 Sodium Cancelled 10/23/21 15:00 Potassium Cancelled 10/23/21 15:00 BUN Cancelled 10/23/21 15:00 Creatinine Cancelled 10/23/21 15:00 Glucose Cancelled 10/23/21 15:00 Phosphorus 1.9 mg/dL (2.5-4.9) L 10/23/21 04:05 Magnesium 2.1 mg/dL (1.8-2.4) 10/23/21 04:05 Total Bilirubin 0.4 mg/dL (0.2-1.0) 10/22/21 01:58 AST 14 U/L (15-37) L 10/22/21 01:58 ALT 23 U/L (12-78) 10/22/21 01:58 Alkaline Phosphatase 40 U/L (45-117) L 10/22/21 01:58 Triglycerides 34 mg/dL (<150) 10/22/21 08:15 Cholesterol 111 mg/dL (<200) 10/22/21 08:15 HDL Cholesterol 56 mg/dL (40-60) 10/22/21 08:15 Cholesterol/HDL Ratio 1.98 10/22/21 08:15 Lipase 74 U/L (73-393) 10/23/21 04:05 Home Medications: Pnv No.95/Ferrous Fum/Folic AC [ Formula Tablet] 1 tab PO DAILY 12/18/18 Time spent managing pt's care (in minutes): 33
== END 2021-10-23 10:22 | disposition home or self-care (01) | DRG 440 ==
LOC: ER 21:41 → ERHOLD 10-22 02:32 → 2ND 10-22 15:17
PROVIDERS: ADMIT Internal Medicine; ATTEND Internal Medicine
DX: K85.90 Acute pancreatitis without necrosis or infection, unspecified (principal); Z20.822 Contact with and (suspected) exposure to COVID-19
CPT/HCPCS: 0240U; 36415; 74177; 76705; 80048; 80053; 80061; 80307; 81003; 81015; 83036; 83605; 83690; 83735; 84100; 84145; 85025; 87040; 96361; 96365; 96366; 96375; 99285; J1650; J2270; J2405; J2550; J2765; J3490; J7030; Q9967